=== PATIENT | female | born 1950 | race Caucasian/White ===

== ENCOUNTER 2018-08-18 19:51 | Emergency (ER) | payer MEDICARE, OTHER, SELFPAY ==
[2018-08-18 19:55] VITALS: BP 132/74; PULSE 94; RESP 18; TEMP 36.6; O2SAT 94
--- NOTE | 2018-08-18 21:11 | ED.BACK ---
HPI - Back Pain/Injury General Chief Complaint: Back Pain/Injury Stated Complaint: pain all over Time Seen by Provider: 08/18/18 21:10 Source: patient and family Mode of arrival: ambulatory Limitations: no limitations History of Present Illness HPI Narrative: 67-year-old female here for evaluation of right-sided radiculopathy. She has had this pain in the past. Her last episode at the end of last year. She states she has seen a cardiovascular invasive specialist who told her that ?there is nothing I can do ?. No falls. Does have pain radiating down her right leg. Has not tried anything for symptoms prior to arrival. Related Data Home Medications Medication Instructions Recorded Confirmed allopurinol 200 mg QDAY #0 05/21/16 ascorbic acid (vitamin C) 500 mg PO QDAY #0 05/21/16 aspirin 81 mg PO HS #0 05/21/16 lisinopril 10 mg PO QDAY #0 05/21/16 pregabalin [Lyrica] 50 mg PO AMCC #0 05/21/16 pregabalin [Lyrica] 100 mg PO HS #0 05/21/16 vitamin E 100 mg PO #0 05/21/16 Previous Rx's Medication Instructions Recorded ACETAMINOPHEN 0 mg PO Q6HP PRN #30 05/24/16 amoxicillin-pot clavulanate 875 mg PO BID #20 tab 05/24/16 [Augmentin] colchicine 0.6 mg PO BIDCC #30 tab 05/24/16 hydrocodone-acetaminophen [[place]] 1 tab PO Q6HP PRN #20 tab 05/27/16 cyclobenzaprine 10 mg PO TID PRN #14 tab 08/18/18 hydrocodone-acetaminophen [[place]] 1 tab PO Q4-6H PRN #10 tab 08/18/18 ondansetron HCl [Zofran] 4 mg PO Q6-8H PRN #14 tab 08/18/18 Allergies Allergy/AdvReac Type Severity Reaction Status Date / Time codeine [CODEINE] Allergy Severe VOMITING Verified 08/18/18 20:07 Review of Systems Constitutional Denies fever(s) and Denies headache(s) ENT Ears, Nose, Mouth, and Throat: Denies vertigo and Denies headache(s) Cardiovascular Denies chest pain and Denies dyspnea Respiratory Denies dyspnea Gastrointestinal Gastrointestinal: Denies abdominal pain, Denies nausea and Denies vomiting Genitourinary Denies dysuria, Reports urinary incontinence (This is not new for her. She has stress incontinence), Denies urinary hesitancy and Denies urinary urgency Musculoskeletal Reports back pain, Denies myalgias and Denies arthralgias Integumentary/Breasts Denies rash Neurologic Denies confusion, Denies vertigo and Denies headache(s) Psychiatric Denies confusion Hematologic/Lymphatic Denies easy bleeding and Denies easy bruising [facility] Medical History Chronic renal disease (Acute) Social History Smoking Status: Never smoker Social History Smoking Status: Never smoker Exam Initial Vital Signs Initial Vital Signs: Vital Signs Temperature 97.8 F 08/18/18 19:55 Pulse Rate 94 H 08/18/18 19:55 Respiratory Rate 18 08/18/18 19:55 Blood Pressure 132/74 08/18/18 19:55 Pulse Oximetry 94 08/18/18 19:55 Const General: cooperative, healthy appearing, comfortable, well developed, well groomed and No acute distress Orientation: alert, awake and oriented x3 HENMT Head: normal to inspection and normocephalic Resp Effort & Inspection: normal respiratory effort Cardio Rate: regular rate GI Inspection: non-distended Back/Spine/Pelvis Back: No CVA tenderness Thoracic/Lumbar Spine: No lumbar spinal tenderness Other: Pain seems to be in the posterior proximal hip Skin Lesions: no lesions Rashes: no rashes Neuro General: alert, awake and oriented x3 Cognition: normal cognition Speech: speech normal Extrem General: normal to inspection and capillary refill normal Course Orders Ordered: Discontinued Medications Hydrocodone Bitart/Acetaminophen (Vicodin Prepack) 1 bottle MISC SEEINSTR ONE Stop: 08/18/18 21:44 Last Admin: 08/18/18 21:54 Dose: 1 bottle Cyclobenzaprine HCl (Flexeril 10 Mg Prepack) 1 bottle MISC SEEINSTR ONE Stop: 08/18/18 21:44 Last Admin: 08/18/18 21:54 Dose: 1 bottle Hydromorphone HCl (Dilaudid) 1 mg IM NOW ONE Stop: 08/18/18 21:35 Last Admin: 08/18/18 21:45 Dose: 1 mg Ondansetron HCl (Zofran Odt) 4 mg SL NOW ONE Stop: 08/18/18 21:35 Last Admin: 08/18/18 21:45 Dose: 4 mg Ondansetron HCl (Zofran Odt Prepack) 1 bottle MISC SEEINSTR ONE Stop: 08/18/18 21:44 Last Admin: 08/18/18 21:54 Dose: 1 bottle Vital Signs - 8 hr 08/18/18 19:55 08/18/18 21:57 Temperature 97.8 F Pulse Rate 94 H 80 Respiratory Rate 18 16 Blood Pressure 132/74 Blood Pressure [Right Wrist] 138/50 L Pulse Oximetry 94 94 MDM - Back Pain/Injury MDM Narrative Medical decision making narrative: Patient was given pain medication here in the emergency department. She cannot take anti-inflammatories secondary to her chronic kidney disease. Patient has no red flag symptoms concerning for cauda equina, fracture, metastasis, epidural hematoma/abscess. Hold on radiologic studies for now. Patient stated that the pain medication and the muscle relaxers help her the last time this happened. Will send her home with a short course of these medications. She was given return precautions and follow-up instructions she expressed understanding and agreement plan Discharge Plan Departure Patient Disposition: Home Clinical Impression: Lumbar radiculopathy Discharge Date/Time: 08/18/18 22:10 Interventions: ED Discharge Assessment Last Done: 08/18/18 22:10 Instructions: DI for Back Pain With Sciatica Activity Restrictions/Additional Instructions: No restrictions on your activity. I would contact your primary care doctor for a follow-up. Return to the emergency department for any new or worsening symptoms Prescriptions: New cyclobenzaprine 10 mg tablet 10 mg PO TID PRN (Reason: muscle spasm) Qty: 14 RF: 0 hydrocodone-acetaminophen [[place]] 5-325 mg tablet 1 tab PO Q4-6H PRN (Reason: pain) Qty: 10 RF: 0 ondansetron HCl [Zofran] 4 mg tablet 4 mg PO Q6-8H PRN (Reason: nausea and vomiting) Qty: 14 RF: 0 No Action lisinopril 10 MG tablet 10 mg PO QDAY Qty: 0 RF: 0 allopurinol 100 MG tablet 200 mg QDAY Qty: 0 RF: 0 aspirin 81 MG tablet,chewable 81 mg PO HS Qty: 0 RF: 0 pregabalin [Lyrica] 50 MG capsule 100 mg PO HS Qty: 0 RF: 0 pregabalin [Lyrica] 100 MG capsule 50 mg PO AMCC Qty: 0 RF: 0 vitamin E 100 UNIT capsule 100 mg PO Qty: 0 RF: 0 ascorbic acid (vitamin C) 500 MG tablet 500 mg PO QDAY Qty: 0 RF: 0 ACETAMINOPHEN PO Q6HP PRNQty: 30 RF: 0 colchicine 0.6 MG tablet 0.6 mg PO BIDCC Qty: 30 RF: 0 amoxicillin-pot clavulanate [Augmentin] 875 MG/125 MG tablet 875 mg PO BID Qty: 20 RF: 0 hydrocodone-acetaminophen [[place]] 5 MG/325 MG tablet 1 tab PO Q6HP PRNQty: 20 RF: 0
[2018-08-18] MEDS: HYDROMORPHONE 1 MG INJ IM (21:45)
[2018-08-18] MEDS: ONDANSETRON 4 MG ODT SL (21:45)
[2018-08-18] MEDS: CYCLOBENZAPRINE 10 MG PREPACK 1 BOTTLE MISC (21:54)
[2018-08-18] MEDS: ONDANSETRON 4 MG ODT PREPACK 1 BOTTLE MISC (21:54)
[2018-08-18] MEDS: HYDROCODONE/ACET 5/325 PREPACK 1 BOTTLE MISC (21:54)
[2018-08-18 21:57] VITALS: BP 138/50; PULSE 80; RESP 16; O2SAT 94
== END 2018-08-18 22:10 | disposition home or self-care (01) ==
PROVIDERS: Emergency Provider Emergency Medicine
DX: M54.16 Radiculopathy, lumbar region (principal); M79.604 Pain in right leg
CPT/HCPCS: 96372; 99282; 99283; J1170

== ENCOUNTER → 2024-12-11 13:49 | Outpatient (CLI) | payer MEDICARE, OTHER, SELFPAY ==
[2024-12-11 15:18] LABS: NT-proBNP (BNP-Adult 18+) 1580 pg/mL (<125)
[2024-12-11 20:47] LABS: Alanine Aminotransferase 29 IU/L (<35); Albumin 4.1 g/dL (3.5-5.0); Albumin Globulin Ratio 1.5 (1.0-2.8); Alkaline Phosphatase 195 U/L (38-126); Blood Urea Nitrogen 58 mg/dL (7-17); Calcium 9.9 mg/dL (8.4-10.2); Carbon Dioxide 22 mmol/L (22-32); Chloride 103 mmol/L (98-107); Estimated Glomerular Filt Rate 37 mL/min (>60); Globulin 2.7 g/dL (1.7-4.1); Glucose 140 mg/dL (70-99); HEMOLYSIS < 15 (0-50); Potassium 4.6 mmol/L (3.4-5.1); Sodium 139 mmol/L (137-145); Total Protein 6.8 g/dL (6.3-8.2)
== END ==
PROVIDERS: Referring Provider Internal Medicine Cardiovascular Disease; Visit Provider Internal Medicine Cardiovascular Disease
DX: I50.9 Heart failure, unspecified (principal)
CPT/HCPCS: 36415; 80053; 83880

== ENCOUNTER → 2025-02-11 08:11 | Outpatient (CLI) | payer MEDICARE, OTHER, SELFPAY ==
--- NOTE | 2025-02-11 08:13 | DI.CT.S_ITS ---
PROCEDURE: CT CHEST ABD PEL WO CON INDICATIONS: ANEMIA TECHNIQUE: After the administration of oral contrast, 5 mm thick sections acquired from the lung apices to the symphysis pubis. 5 mm thick coronal and sagittal reformats acquired, with additional 7 mm coronal MIP reformats through the lungs. For radiation dose reduction, the following was used: automated exposure control, adjustment of mA and/or kV according to patient size. COMPARISON: None. FINDINGS: Image quality: Diagnostic. CHEST: Lower Neck: No enlarged lymph nodes. Thyroid: No thyroid nodules which require sonographic follow up, per consensus guidelines. Axillae: No enlarged lymph nodes. Chest Wall: Unremarkable. Bones: Unremarkable. Lungs and Pleura: No pneumothorax or pleural effusions. Mild small airway densities as well as centrilobular ground-glass density in the left lower lobe posteriorly. Heart: Heart size is normal. No pericardial effusion. Thoracic Vessels: The aorta and pulmonary arteries demonstrate normal size. Mediastinum and Trixie: No enlarged lymph nodes. Esophagus: No wall thickening. No hiatal hernia. ABDOMEN: Liver: No solid mass. Gallbladder: No radiopaque gallstones or wall thickening. Biliary ducts: No biliary dilation. Pancreas: No ductal dilation. Spleen: Size is within normal limits. Adrenal Glands: There is a left adrenal myelolipoma measuring 6.25 cm. Kidneys and Ureters: No hydronephrosis. No solid mass. No complex renal cystic lesion which requires follow up. Stomach and Bowel: Normal colonic caliber, without significant wall thickening. The appendix is normal Peritoneum: No abnormal intraperitoneal fluid. No free air. Ventral Wall: No hernia. Abdominal Nodes: No retroperitoneal or mesenteric adenopathy by size criteria. Vessels: Aorta and inferior vena cava are normal in size. PELVIS: Pelvic Organs: There is a probable fibroid in the lower uterine segment on the left measuring 2.35 x 1.55 cm. No adnexal mass. Bladder: Unremarkable. Pelvic Nodes: No enlarged lymph nodes. Miscellaneous: No inguinal hernias are seen. Bones: No aggressive osseous abnormality. IMPRESSION: 1. There is mild aspiration versus bronchiolitis in the left lower lobe. No pleural effusion. 2. No acute abnormality or lesions suspicious for malignancy seen otherwise in the chest, abdomen and pelvis. Dictated by: Oracio Corea M.D. on 02/11/2025 at 13:15 Approved by: Oracio Corea M.D. on 02/11/2025 at 13:22
== END ==
LOC: CT 08:12
DX: D17.5 Benign lipomatous neoplasm of intra-abdominal organs (principal); D64.9 Anemia, unspecified
CPT/HCPCS: 71250; 74176